=== PATIENT | female | born 1970 | race Hispanic/Latino ===

== ENCOUNTER 2020-04-10 09:49 | Emergency (ER) | payer BC, SELFPAY ==
--- NOTE | ~2020-04-10 | XR_ITS ---
EXAMINATION: XR ankle LT min 3V EXAM DATE: 04/10/2020 10:18 INDICATION: PAIN/swelling lat Lt ankle; fell last p.m. Initial encounter. TECHNIQUE: Left ankle frontal, lateral and oblique projections obtained and reviewed. There is no pr ior study for comparison. FINDINGS: The left ankle mortise appears intact. There are no acute fractures or dislocations ident ified. There is no subcutaneous gas. The soft tissue is unremarkable. There are no radiopaque for eign bodies. IMPRESSION: 1. XR ankle LT min 3V exam without acute osseous findings. Reviewed, dictated and finalized at location A. [employer]
[2020-04-10 10:00] VITALS: BP 108/45; PULSE 73; RESP 16; TEMP 36.2; O2SAT 98
--- NOTE | 2020-04-10 10:31 | ED.LOWEXIN ---
HPI - Extremity Injury (Lower) General Chief Complaint: Extremity Injury, Lower Stated Complaint: lt ankle injury Source: patient Mode of arrival: ambulatory Limitations: no limitations History of Present Illness HPI Narrative: Patient is a 49-year-old female who presents complaining of left ankle pain. She reports missing 2 steps and tripping and twisting ankle last p.m. She reports awaking with tenderness with ambulation and swelling. She denies other injuries. She denies taking [id number] medications at this time for symptom relief. She denies significant medical or surgical history. Related Data Home Medications Medication Instructions Recorded Confirmed levothyroxine 75 mcg PO DAILY 04/10/20 04/10/20 liothyronine 5 mcg PO DAILY 04/10/20 04/10/20 montelukast 10 mg PO DAILY 04/10/20 04/10/20 sertraline 50 mg PO DAILY 04/10/20 04/10/20 sertraline 100 mg PO DAILY 04/10/20 04/10/20 Allergies Allergy/AdvReac Type Severity Reaction Status Date / Time clarithromycin Allergy Other Verified 04/10/20 10:03 clindamycin Allergy Other Verified 04/10/20 10:03 doxycycline Allergy Other Verified 04/10/20 10:03 gluten Allergy Gastrointestinal Verified 04/10/20 10:03 Upset Penicillins Allergy Rash Verified 04/10/20 10:03 morphine AdvReac Other Verified 04/10/20 10:03 Review of Systems Review of Systems: Narrative: CONSTITUTIONAL: Denies fever, chills, or sweats. EYES: Denies visual changes, redness, or discharge. ENT: Denies rhinorrhea, congestion, sore throat, or otalgia. CARDIOVASCULAR: Denies chest pain, palpitations, or edema. RESPIRATORY: Denies cough or dyspnea. GASTROINTESTINAL: Denies abdominal pain, nausea, vomiting, or diarrhea. GENITOURINARY: Denies dysuria or hematuria. SKIN: Denies rash or itching. MUSCULOSKELETAL: Left ankle pain NEUROLOGIC: Denies headache, numbness, dizziness, or weakness. PSYCHIATRIC: Denies anxiety or depression. [facility] Past Medical History Medical History Asthma Hypothyroidism Surgical History Surgical History Hx of cholecystectomy Family History Family History Other No significant family history Social History Social History Smoking status: Never smoker Alcohol intake: never Substance use: never Living arrangements: with family Exam Narrative: Exam Narrative: GENERAL: Well-appearing, well-nourished, and in no acute distress. HEAD: Normocephalic, atraumatic. EYES: No redness or drainage. ENT: Mucous membranes pink and moist. CHEST: No respiratory distress. EXTREMITIES: Tenderness with palpation and edema noted to left lateral ankle. Full range of motion, distal sensation intact, good capillary refill SKIN: Warm, dry, no rash. NEURO: No focal deficits. Alert and oriented x3. Gait steady. PSYCH: Normal affect. No signs of depression or anxiety. Course Vital Signs Vital signs: Vital Signs Temperature 36.2 C L 04/10/20 10:00 Pulse Rate 73 04/10/20 10:00 Respiratory Rate 16 04/10/20 10:00 Blood Pressure 108/45 L 04/10/20 10:00 Pulse Oximetry 98 04/10/20 10:00 Temperature 36.2 C L 04/10/20 10:00 Pulse Rate 73 04/10/20 10:00 Respiratory Rate 16 04/10/20 10:00 Blood Pressure 108/45 L 04/10/20 10:00 Pulse Oximetry 98 04/10/20 10:00 MDM - Extremity Injury (Lower) MDM Narrative Medical decision making narrative: Patient's x-ray showed no fracture, dislocation or other anomaly. Bruce wrap applied. Discussed with patient most likely she sprained ankle when tripping. Discussed ice and elevation as well as NSAIDs for pain. Bruce wrap for comfort. Discussed following up with orthopedics in 1 week if symptoms persist. Patient is stable for discharge to home with outpatient follow-up as discussed. Dif
== END 2020-04-10 10:55 | disposition home or self-care (01) ==
PROVIDERS: Emergency Provider Nurse Practitioner
DX: S93.402A Sprain of unspecified ligament of left ankle, initial encounter (principal); S96.912A Strain of unspecified muscle and tendon at ankle and foot level, left foot, initial encounter; W10.9XXA Fall (on) (from) unspecified stairs and steps, initial encounter; J45.909 Unspecified asthma, uncomplicated; E03.9 Hypothyroidism, unspecified
CPT/HCPCS: 73610; 99213; G0463